=== PATIENT | male | born 1970 | race Caucasian/White ===

== ENCOUNTER 2020-12-23 12:20 | Emergency (ER) | payer OTHER, SELFPAY ==
[2020-12-23] VITALS (7 sets, daily range): BP systolic 139–187; BP diastolic 76–107; PULSE 64–85; RESP 11–24; TEMP 36.6; O2SAT 99–100
--- NOTE | 2020-12-23 12:26 | ECG_ITS ---
Measurements Intervals [place] Rate: 63 P: 12 [place]: 186 QRS: 8 QRSD: 97 T: -6 QT: 364 QTc: 375 Interpretive Statements SINUS RHYTHM WITH SINUS ARRHYTHMIA INCOMPLETE RIGHT BUNDLE BRANCH BLOCK BORDERLINE T WAVE ABNORMALITY- INFERIOR LEADS BORDERLINE ECG Electronically Signed On 12-23-2020 15:33:49 CDT by Christiano Franklin D.O.
[2020-12-23 12:41] LABS: Basophils Absolute Auto 0.1 K/mm3 (0.0-0.1); Basophils Percent Auto 0.9 % (0.2-1.2); Eosinophils Absolute Auto 0.4 K/mm3 (0-0.3); Eosinophils Percent Auto 6.6 % (0-4.4); Hematocrit 47.2 % (42.0-52.0); Hemoglobin 15.8 g/dL (14.0-18.0); Immature Granulocyte Absolute 0.02 K/mm3 (0.00-0.031); Immature Granulocyte Percent A 0.4 % (0-0.5); Lymphocytes Percent Auto 29.4 % (18.3-44.2); Mean Corpuscular HGB Conc 33.5 g/dl (32-36); Mean Corpuscular Hemoglobin 29.6 pg (26-34); Mean Corpuscular Volume 88.6 fl (80-100); Mean Platelet Volume 9.5 fl (7.4-10.4); Monocytes Absolute Auto 0.4 K/mm3 (0.1-0.6); Monocytes Percent Auto 6.8 % (2.6-8.5); Neutrophils Percent Auto 55.9 % (45.5-73.1); Platelet Count Result 158 k/mm3 (150-375); Red Blood Count 5.33 M/mm3 (4.6-6.20); Red Cell Distribution Width 11.7 % (11.5-14.5); White Blood Count 5.4 K/mm3 (4.5-10.0)
[2020-12-23 12:52] LABS: Anion Gap 13 mmol/L (8-16); Blood Urea Nitrogen 26 mg/dL (9-20); Calcium 10.2 mg/dL (8.4-10.2); Carbon Dioxide 24 mmol/L (22-30); Chloride 99 mmol/L (98-107); Estimated CRCL calculation 86 ml/min; Estimated Glomerular Filt Rate > 60; Glucose 253 mg/dL (65-110); Potassium 4.3 mmol/L (3.4-5.0); Sodium 136 mmol/L (137-145)
--- NOTE | 2020-12-23 13:27 | PC.NURSE ---
Patient walked back to room without difficulty and in no distress at this time.
[2020-12-23] MEDS: SODIUM CHLORIDE 0.9% IV 1,000 ML 999 ML IV CONT (14:41)
[2020-12-23] MEDS: MECLIZINE HCL 25 MG TABLET PO (14:41)
--- NOTE | 2020-12-23 15:48 | ED.DIZZY ---
HPI - Dizziness General Chief Complaint: Dizziness Stated Complaint: dizziness/vertigo Time Seen by Provider: 12/23/20 13:38 History of Present Illness HPI Narrative: Patient is a 42-year-old male who presents ER with dizziness. Sudden onset this morning. Worse with laying down flat. No nausea or vomiting or sweats. No chest pain or chest pressure. No weakness in arm or leg. Denies ringing in his ear or ear pressure. Has not taking his morning medications for diabetes. Related Data Allergies Allergy/AdvReac Type Severity Reaction Status Date / Time propylene glycol Allergy Unknown Unknown Verified 12/23/20 14:36 Cat Dander Allergy Unknown Hives Uncoded 12/23/20 14:36 Review of Systems Review of Systems: All systems reviewed & are unremarkable except as noted in HPI and below Constitutional: Constitutional: Denies chills, Denies fever(s) and Denies weakness Eyes: Eyes: Denies change in vision and Denies photophobia ENT: Reports dizziness, Denies nasal congestion and Denies sore throat Cardiovascular: Cardiovascular: Denies chest pain and Denies radiating jaw, neck or arm pain Neurologic: Reports vertigo, Denies focal weakness and Denies numbness PMFSH Past Medical History Medical History (Updated 12/23/20 @ 15:52 by Musa Davis MD) Diabetes Hyperlipidemia Hypertension Surgical History Surgical History (Updated 12/23/20 @ 15:50 by Musa Davis MD) History of appendectomy Social History Social History (Updated 12/23/20 @ 15:50 by Musa Davis MD) Smoking status: Never smoker Gender identity (if verbalized by the patient): Male Exam Narrative: GENERAL: Well-appearing, well-nourished, and in no acute distress. HEAD: Normocephalic, atraumatic. EYES: PERRL and EOMI. ENT: TMs normal bilaterally. Ear canals free of debris. CHEST: Clear to auscultation. No respiratory distress. HEART: Regular rate and rhythm. Normal peripheral pulses. EXTREMITIES: Normal range of motion. No edema. NEURO: Ambulates with steady gait. Alert and oriented x3. PSYCH: Normal mood and affect. Course Course Emergency Course: Dizziness improved with meclizine and fluids. Discharge home. Vital Signs Vital signs: Vital Signs Temperature 97.9 F 12/23/20 12:24 Pulse Rate 64 12/23/20 12:24 Respiratory Rate 20 12/23/20 12:24 Blood Pressure 139/76 12/23/20 12:24 Pulse Oximetry 100 12/23/20 12:24 Temperature 97.9 F 12/23/20 12:24 Pulse Rate 71 12/23/20 14:58 Respiratory Rate 24 H 12/23/20 14:58 Blood Pressure 159/91 H 12/23/20 14:58 Pulse Oximetry 99 12/23/20 14:58 MDM - Dizziness Lab Data Result diagrams: 12/23/20 12:34 12/23/20 12:34 Labs: Lab Results 12/23/20 12/23/20 Range/Units 12:34 12:34 WBC 5.4 (4.5-10.0) K/mm3 RBC 5.33 (4.6-6.20) M/mm3 Hgb 15.8 (14.0-18.0) g/dL Hct 47.2 (42.0-52.0) % MCV 88.6 (80-100) fl MCH 29.6 (26-34) pg MCHC 33.5 (32-36) g/dl RDW 11.7 (11.5-14.5) % Plt Count 158 (150-375) k/mm3 MPV 9.5 (7.4-10.4) fl Immature Gran % (Auto) 0.4 (0-0.5) % Neut % (Auto) 55.9 (45.5-73.1) % Lymph % (Auto) 29.4 (18.3-44.2) % [place] % (Auto) 6.8 (2.6-8.5) % Eos % (Auto) 6.6 H (0-4.4) % Baso % (Auto) 0.9 (0.2-1.2) % Lymph # (Auto) 1.60 (0.9-3.2) K/mm3 [place]ney # (Auto) 0.4 (0.1-0.6) K/mm3 Eos # (Auto) 0.4 H (0-0.3) K/mm3 Baso # (Auto) 0.1 (0.0-0.1) K/mm3 Abs Immat Gran (auto) 0.02 (0.00-0.031) K/mm3 Absolute Neuts (auto) 3.0 (1.3-6.7) K/mm3 Absolute Nucleated RBC 0.0 (0.0-0.012) K/mm3 Nucleated RBC % 0.0 (0.0-0.2) % Sodium 136 L (137-145) mmol/L Potassium 4.3 (3.4-5.0) mmol/L Chloride 99 (98-107) mmol/L Carbon Dioxide 24 (22-30) mmol/L Anion Gap 13 (8-16) mmol/L BUN 26 H (9-20) mg/dL Creatinine 1.20 (0.7-1.3) mg/dL Estim Creat Clear Calc 86 ml/min Estimated GFR > 60 (59 - ) Glucose 253 H (65-110)
== END 2020-12-23 16:46 | disposition home or self-care (01) ==
PROVIDERS: Emergency Provider Emergency Medicine; PCP Family Medicine
DX: R42 Dizziness and giddiness (principal); E11.9 Type 2 diabetes mellitus without complications; E78.5 Hyperlipidemia, unspecified; I10 Essential (primary) hypertension
CPT/HCPCS: 36415; 80048; 85025; 93005; 96360; 99284; A9270; J7030

== ENCOUNTER 2020-12-30 16:17 | Emergency (ER) | payer OTHER, SELFPAY ==
[2020-12-30] VITALS (21 sets, daily range): BP systolic 100–148; BP diastolic 56–81; PULSE 66–94; RESP 15–22; TEMP 36.3; O2SAT 98
--- NOTE | ~2020-12-30 | XR_ITS ---
EXAMINATION: XR chest 2V DATE: 12/30/2020 18:25 INDICATION: Shortness of breath. TECHNIQUE: Frontal and lateral views of the chest were obtained. COMPARISON: Chest 2 views 06/16/2004 FINDINGS: There is no pneumonia, pleural effusion, pneumothorax. The heart size is normal. IMPRESSION: 1. No acute cardiopulmonary disease. Reviewed, dictated and finalized at location A.
--- NOTE | 2020-12-30 18:12 | ECG_ITS ---
Measurements Intervals [place] Rate: 73 P: 25 AL: 178 QRS: 15 QRSD: 101 T: -60 QT: 360 QTc: 397 Interpretive Statements SINUS RHYTHM INCOMPLETE RIGHT BUNDLE BRANCH BLOCK NONSPECIFIC ST & T-WAVE ABNORMALITY- INF/LAT LEADS BASELINE ARTIFACT- V2-V6 BORDERLINE ECG Electronically Signed On 12-30-2020 18:55:22 CDT by Christiano Franklin D.O.
--- NOTE | 2020-12-30 18:16 | ED.GENADULT ---
HPI - General Adult General Chief complaint: Shortness of Breath/Dyspnea Stated complaint: CANT CATCH MY BREATH, BODY ACHES Time Seen by Provider: 12/30/20 17:11 Source: patient Mode of arrival: ambulatory Limitations: no limitations History of Present Illness HPI narrative: Patient presents for evaluation of shortness of breath, neck discomfort and a burning sensation in both legs that occurred today at work at approximately 1400. Symptoms lasted approximately 45 minutes. He then came here for further evaluation. 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 He had similar symptoms 2 days ago and was seen in urgent care at that time. He states that he had an EKG which was normal. He has an underlying history of hypertension, hyperlipidemia, diabetes. States that his blood sugars have been anywhere from 190's to 390's as of late. He is attempting to control his blood sugars with Metformin, although not optimally. At the current time he denies any shortness of breath, neck pain or leg pain. Upon arriving here today he had a little bit of left sided chest pressure, which has since resolved. No personal or family hx of VTE. He does not smoke. States stress has been controlled with buspar. Related Data Home Medications Medication Instructions Recorded Confirmed amlodipine 12/30/20 atenolol 12/30/20 atorvastatin 12/30/20 buspirone mg 12/30/20 ergocalciferol (vitamin D2) 12/30/20 12/30/20 hydrochlorothiazide 12/30/20 lisinopril 12/30/20 metformin mg PO 12/30/20 Allergies Allergy/AdvReac Type Severity Reaction Status Date / Time propylene glycol Allergy Unknown Unknown Verified 12/30/20 17:09 Cat Dander Allergy Unknown Hives Uncoded 12/23/20 14:36 Review of Systems Review of Systems: CONSTITUTIONAL: Denies fever, chills, or sweats. EYES: Denies visual changes, redness, or discharge. ENT: Denies rhinorrhea, congestion, sore throat, or otalgia. CARDIOVASCULAR: Reports left-sided chest pressure earlier, now resolved. Denies palpitations or edema. RESPIRATORY: Reports recent shortness of breath, now resolved. Denies cough. GASTROINTESTINAL: Denies abdominal pain, nausea, vomiting, or diarrhea. GENITOURINARY: Denies dysuria or hematuria. SKIN: Denies rash or itching. MUSCULOSKELETAL: Reports neck pain earlier, now resolved. Denies back pain, joint pain NEUROLOGIC: Denies headache, numbness, dizziness, or weakness. PSYCHIATRIC: Denies anxiety or depression. [facility] Past Medical History Medical History Diabetes Hyperlipidemia Hypertension Surgical History Surgical History History of appendectomy Family History Family History Father Hypertension Mother Heart disease Social History Social History Smoking status: Never smoker Alcohol use details: social Substance use: current Living arrangements: with family Gender identity (if verbalized by the patient): Male Sexual Orientation (if Verbalized by the Patient): Straight or Heterosexual Spiritual care concerns: No Exam Narrative: GENERAL: Well-appearing, well-nourished, and in no acute distress. HEAD: Normocephalic, atraumatic. EYES: PERRLA and EOMI. ENT: Nares clear, no rhinorrhea or epistaxis. Mucous membranes moist. Oropharynx without tonsillar hypertrophy exudate or other lesions. Bilateral TMs pearly el nonbulging NECK: Supple. No adenopathy or masses. No carotid bruits or JVD CHEST: Clear to auscultation. No respiratory distress. No wheezes rales or rhonchi HEART: Regular rate and rhythm. No murmur heard. Normal peripheral pulses. ABDOMEN: Soft, nontender, nondistended, normal active bowel sounds. EXTREMITIES: Normal range of motion. No edema. No posterior calf tenderness. No cords. S
[2020-12-30] MEDS: SODIUM CHLORIDE 0.9% IV 1,000 ML 999 ML IV CONT (18:39)
[2020-12-30 18:40] LABS: Basophils Absolute Auto 0.1 K/mm3 (0.0-0.1); Basophils Percent Auto 0.7 % (0.2-1.2); Eosinophils Absolute Auto 0.5 K/mm3 (0-0.3); Eosinophils Percent Auto 5.4 % (0-4.4); Hemoglobin 15.5 g/dL (14.0-18.0); Immature Granulocyte Absolute 0.02 K/mm3 (0.00-0.031); Immature Granulocyte Percent A 0.2 % (0-0.5); Lymphocytes Percent Auto 26.7 % (18.3-44.2); Mean Corpuscular Hemoglobin 29.4 pg (26-34); Mean Platelet Volume 9.6 fl (7.4-10.4); Monocytes Absolute Auto 0.6 K/mm3 (0.1-0.6); Monocytes Percent Auto 6.2 % (2.6-8.5); Neutrophils Absolute Auto 5.5 K/mm3 (1.3-6.7); Neutrophils Percent Auto 60.8 % (45.5-73.1); Platelet Count Result 193 k/mm3 (150-375); Red Blood Count 5.28 M/mm3 (4.6-6.20); Red Cell Distribution Width 11.8 % (11.5-14.5)
[2020-12-30 18:50] LABS: Partial Thromboplastin Time 23.8 SECONDS (22.3-36.8)
[2020-12-30 18:52] LABS: Alanine Aminotransferase 114 U/L (4-50); Albumin Level 4.6 g/dL (3.5-5.1); Alkaline Phosphatase 75 U/L (38-126); Anion Gap 12 mmol/L (8-16); Aspartate Amino Transferase 84 U/L (17-59); Bilirubin,Total 0.6 mg/dL (0.2-1.3); Blood Urea Nitrogen 30 mg/dL (9-20); Calcium 10.1 mg/dL (8.4-10.2); Carbon Dioxide 25 mmol/L (22-30); Chloride 98 mmol/L (98-107); Creatine Kinase 150 U/L (55-170); Estimated CRCL calculation 58 ml/min; Estimated Glomerular Filt Rate 40; Glucose 141 mg/dL (65-110); Potassium 4.5 mmol/L (3.4-5.0); Sodium 135 mmol/L (137-145)
[2020-12-30 19:03] LABS: Troponin I < 0.012 ng/mL (0.000-0.034)
== END 2020-12-30 22:04 | disposition left against medical advice (07) ==
PROVIDERS: Emergency Provider Nurse Practitioner; PCP Family Medicine
DX: N17.9 Acute kidney failure, unspecified (principal); R06.02 Shortness of breath; R79.1 Abnormal coagulation profile; I10 Essential (primary) hypertension; E78.5 Hyperlipidemia, unspecified; E11.9 Type 2 diabetes mellitus without complications; Z79.84 Long term (current) use of oral hypoglycemic drugs; I45.10 Unspecified right bundle-branch block; R94.31 Abnormal electrocardiogram [ECG] [EKG]
CPT/HCPCS: 36415; 71046; 80053; 82550; 84484; 85025; 85380; 85610; 85730; 93005; 96360; 99284; J7030

== ENCOUNTER 2020-12-31 20:19 | Emergency (ER) | payer OTHER, SELFPAY ==
[2020-12-31] VITALS (7 sets, daily range): BP systolic 114–127; BP diastolic 79–91; PULSE 70–76; RESP 18–22; TEMP 36.2; O2SAT 100
--- NOTE | ~2020-12-31 | CT_ITS ---
EXAMINATION: CTA chest PE protocol DATE: 01/01/2021 00:32 INDICATION: Shortness of breath TECHNIQUE: Computed tomography angiography (CTA) of the chest was performed with 100 mL Omnipaque-350 intravenous contrast timed to evaluate the pulmonary arteries. Coronal maximum intensity projection 3D-reconstructions were created by the technologist. Automated exposure control and iterative reconst ruction technique were employed. Exam dose: 735.61 mGy-cm total exam DLP. COMPARISON: 12/30/2020 PA and lateral chest FINDINGS: There is diagnostic contrast enhancement of the pulmonary arteries and no evidence of pulmo nary embolism. No hilar or mediastinal mass lesion or lymphadenopathy. No thoracic aortic aneurysm or dissection. Normal heart size. No pericardial or pleural effusion. No pulmonary infiltrate or consolidation or pulmonary mass lesion is detected. The adrenal glands are unremarkable. Hepatic steatosis. Included skeletal structures are unremarkable. IMPRESSION: No evidence of pulmonary embolism Reviewed, dictated and finalized at Location [facility]. Reviewed, dictated and finalized at location A.
[2020-12-31 23:03] LABS: Add Urine Microscopic? YES; Appearance Urine Clear (Clear); Bilirubin Urine Negative (Negative); Blood Urine 1+ (Negative); Color Urine Yellow (Yellow); Glucose Urine UA Negative (Negative); Ketones Urine Negative (Negative); Leukocyte Esterase Ur Negative LEU/UL (Negative); Mucus Urine Rare /lpf; Nitrate Urine Negative (Negative); Protein Urine Negative (Negative); RBC Urine 0-2 /hpf (0-2); Specific Grav Ur 1.015 (1.001-1.035); Squamous Epithelial Cell Urine Occasional /hpf (Few); Urobilinogen Urine Negative mg/dL (<2.0); WBC Urine 0-3 /hpf
[2020-12-31 23:07] LABS: Basophils Absolute Auto 0.1 K/mm3 (0.0-0.1); Basophils Percent Auto 0.7 % (0.2-1.2); Eosinophils Absolute Auto 0.3 K/mm3 (0-0.3); Eosinophils Percent Auto 3.8 % (0-4.4); Hematocrit 46.8 % (42.0-52.0); Hemoglobin 15.4 g/dL (14.0-18.0); Immature Granulocyte Absolute 0.01 K/mm3 (0.00-0.031); Immature Granulocyte Percent A 0.1 % (0-0.5); Lymphocytes Absolute Auto 2.09 K/mm3 (0.9-3.2); Lymphocytes Percent Auto 30.2 % (18.3-44.2); Mean Corpuscular HGB Conc 32.9 g/dl (32-36); Mean Corpuscular Hemoglobin 29.1 pg (26-34); Mean Corpuscular Volume 88.3 fl (80-100); Mean Platelet Volume 9.8 fl (7.4-10.4); Monocytes Absolute Auto 0.5 K/mm3 (0.1-0.6); Monocytes Percent Auto 6.5 % (2.6-8.5); Neutrophils Absolute Auto 4.1 K/mm3 (1.3-6.7); Neutrophils Percent Auto 58.7 % (45.5-73.1); Platelet Count Result 194 k/mm3 (150-375); Red Cell Distribution Width 11.6 % (11.5-14.5); White Blood Count 6.9 K/mm3 (4.5-10.0)
[2020-12-31 23:17] LABS: Anion Gap 13 mmol/L (8-16); Blood Urea Nitrogen 21 mg/dL (9-20); Calcium 9.7 mg/dL (8.4-10.2); Carbon Dioxide 24 mmol/L (22-30); Chloride 97 mmol/L (98-107); Estimated CRCL calculation 81 ml/min; Estimated Glomerular Filt Rate 59; Glucose 162 mg/dL (65-110); Potassium 3.7 mmol/L (3.4-5.0); Sodium 134 mmol/L (137-145)
--- NOTE | 2020-12-31 23:29 | ED.RECABL ---
HPI - Recheck/Abnormal Lab/Rx History of Present Illness HPI narrative: 50 yo male presnets to the ED for abnormal labs. He was previously seen here for chest pain. He was found to have an elevated creatinine and d-dimer. There was concern for a PE, but CT could not be done due to low GFR. He was given fluids. The PA seeing him wanted to admit him for ED, and further work-up for PE. The patient could not stay,. so he left AMA. He currently has no complaints. Related Data Home Medications Medication Instructions Recorded Confirmed amlodipine 12/30/20 atenolol 12/30/20 atorvastatin 12/30/20 buspirone mg 12/30/20 ergocalciferol (vitamin D2) 12/30/20 12/30/20 hydrochlorothiazide 12/30/20 lisinopril 12/30/20 metformin mg PO 12/30/20 Allergies Allergy/AdvReac Type Severity Reaction Status Date / Time propylene glycol Allergy Unknown Unknown Verified 12/30/20 17:09 Cat Dander Allergy Unknown Hives Uncoded 12/23/20 14:36 Review of Systems Review of Systems: All systems reviewed & are unremarkable except as noted in HPI and below PMFSH Past Medical History Medical History Diabetes Hyperlipidemia Hypertension Surgical History Surgical History History of appendectomy Family History Family History Father Hypertension Mother Heart disease Social History Social History Smoking status: Never smoker Alcohol use details: social Substance use: current Gender identity (if verbalized by the patient): Male Spiritual care concerns: No Exam Const: General: healthy appearing, no acute distress and alert Orientation/consciousness: patient oriented x3 HENMT: Head: normal to inspection Neck: Neck: normal visual inspection and no lymphadenopathy Chest: Chest palpation & inspection: no tenderness Resp: Effort & Inspection: normal respiratory effort Auscultation: clear to auscultation bilaterally, no rales, no rhonchi and no wheezes Cardio: Jugular venous distension: no JVD Rate: regular rate Rhythm: regular rhythm Heart sounds: no murmurs GI: Inspection: non-distended GI Palp: Yes Soft to palpation and No Tenderness to palpation present (GI) Skin: General skin exam: normal color Neuro: General: patient oriented x3 and moves all extremities Speech: normal speech Extrem: General: no edema Psych: Appearance: well kempt Affect: normal affect Course Vital Signs Vital signs: Vital Signs Temperature 36.2 C L 12/31/20 20:27 Pulse Rate 76 12/31/20 20:27 Respiratory Rate 18 12/31/20 20:27 Blood Pressure 127/79 12/31/20 20:27 Pulse Oximetry 100 12/31/20 20:27 Temperature 36.8 C 01/01/21 02:10 Pulse Rate 71 01/01/21 02:10 Respiratory Rate 17 01/01/21 02:10 Blood Pressure 121/87 01/01/21 02:10 Pulse Oximetry 100 01/01/21 02:10 MDM - Recheck/Abnormal Lab/Rx MDM Narrative Medical decision making narrative: Creatinine corrected. CT negative for PE. No indication for admission at this time. Medical Records Attestation: I reviewed the patient's medical records. Lab Data Attestation: I reviewed the patient's lab results. Result diagrams: 12/31/20 23:00 12/31/20 23:00 Labs: Lab Results 12/31/20 12/31/20 12/31/20 Range/Units 22:52 23:00 23:00 WBC 6.9 (4.5-10.0) K/mm3 RBC 5.30 (4.6-6.20) M/mm3 Hgb 15.4 (14.0-18.0) g/dL Hct 46.8 (42.0-52.0) % MCV 88.3 (80-100) fl MCH 29.1 (26-34) pg MCHC 32.9 (32-36) g/dl RDW 11.6 (11.5-14.5) % Plt Count 194 (150-375) k/mm3 MPV 9.8 (7.4-10.4) fl Immature Gran % (Auto) 0.1 (0-0.5) % Neut % (Auto) 58.7 (45.5-73.1) % Lymph % (Auto) 30.2 (18.3-44.2) % [place] % (Auto) 6.5 (2.6-8.5) % Eos % (A
[2021-01-01] VITALS (9 sets, daily range): BP systolic 119–121; BP diastolic 87–88; PULSE 70–77; RESP 17–19; TEMP 36.8; O2SAT 99–100
[2021-01-01] MEDS: SODIUM CHLORIDE 0.9% IV 1,000 ML 999 ML IV CONT (00:06)
--- NOTE | 2021-01-01 00:21 | PC.NURSE ---
Patient in CT.
== END 2021-01-01 02:08 | disposition home or self-care (01) ==
PROVIDERS: Emergency Medicine; Emergency Provider Emergency Medicine; PCP Family Medicine
DX: R06.02 Shortness of breath (principal)
CPT/HCPCS: 36415; 71275; 80048; 81001; 85025; 96360; 99284; J7030; Q9967

== ENCOUNTER 2022-03-26 22:34 | Emergency (ER) | payer OTHER, SELFPAY ==
--- NOTE | ~2022-03-26 | XR_ITS ---
EXAMINATION: XR chest 2V DATE: 03/26/2022 23:10 INDICATION: Chest discomfort. Arrhythmia. TECHNIQUE: Frontal and lateral views of the chest were obtained. COMPARISON: Chest 2 views 12/30/2020, chest CT 01/01/2021 FINDINGS: There is mild atelectasis in left lower lung zone. No pleural effusion or pneumothorax. The heart size is normal. IMPRESSION: 1. Mild atelectasis in left lower lung zone. Reviewed, dictated and finalized at location A.
--- NOTE | 2022-03-26 22:39 | ECG_ITS ---
Measurements Intervals [place] Rate: 72 P: 16 [place]: 172 QRS: 6 QRSD: 102 T: -75 QT: 344 QTc: 378 Interpretive Statements SINUS RHYTHM INCOMPLETE RIGHT BUNDLE BRANCH BLOCK T WAVE ABNORMALITY IN ANTEROLAT/INF LEADS- CONSIDER ISCHEMIA ABNORMAL ECG COMPARED TO ECG 12/30/2020 18:26:58 T WAVE ABNORMALITY IN ANTEROLAT/INF LEADS- CONSIDER ISCHEMIA NOW PRESENT Electronically Signed On 03-27-2022 6:53:02 CDT by Christiano Franklin D.O.
[2022-03-26 22:57] VITALS: BP 173/91; PULSE 75; RESP 14; TEMP 36.8; O2SAT 100
[2022-03-26 23:04] LABS: Basophils Percent Auto 0.6 % (0.2-1.2); Eosinophils Absolute Auto 0.5 K/mm3 (0-0.3); Eosinophils Percent Auto 6.6 % (0-4.4); Hematocrit 43.5 % (42.0-52.0); Hemoglobin 14.5 g/dL (14.0-18.0); Immature Granulocyte Absolute 0.03 K/mm3 (0.00-0.031); Immature Granulocyte Percent A 0.4 % (0-0.5); Lymphocytes Absolute Auto 1.63 K/mm3 (0.9-3.2); Lymphocytes Percent Auto 22.9 % (18.3-44.2); Mean Corpuscular HGB Conc 33.3 g/dl (32-36); Mean Corpuscular Hemoglobin 30.1 pg (26-34); Mean Corpuscular Volume 90.4 fl (80-100); Mean Platelet Volume 9.2 fl (7.4-10.4); Monocytes Absolute Auto 0.4 K/mm3 (0.1-0.6); Neutrophils Absolute Auto 4.5 K/mm3 (1.3-6.7); Neutrophils Percent Auto 63.5 % (45.5-73.1); Platelet Count Result 185 k/mm3 (150-375); Red Blood Count 4.81 M/mm3 (4.6-6.20); Red Cell Distribution Width 12.2 % (11.5-14.5); White Blood Count 7.1 K/mm3 (4.5-10.0)
[2022-03-26 23:16] LABS: INR 1.2; Prothrombin Time 14.4 Seconds (11.1-14.7)
[2022-03-26 23:17] LABS: Alanine Aminotransferase 66 U/L (6-50); Albumin Level 4.8 g/dL (3.5-5.1); Alkaline Phosphatase 78 U/L (38-126); Anion Gap 12 mmol/L (8-16); Aspartate Amino Transferase 54 U/L (17-59); Bilirubin,Total 0.5 mg/dL (0.2-1.3); Blood Urea Nitrogen 24 mg/dL (9-20); Calcium 9.4 mg/dL (8.4-10.2); Carbon Dioxide 25 mmol/L (22-30); Chloride 102 mmol/L (98-107); Estimated Glomerular Filt Rate > 60; Glucose 135 mg/dL (65-110); Lipase 115 U/L (23-300); Partial Thromboplastin Time 28.6 SECONDS (22.3-36.8); Potassium 3.8 mmol/L (3.4-5.0); Sodium 139 mmol/L (137-145)
[2022-03-26 23:28] LABS: Troponin I < 0.012 ng/mL (0.000-0.034)
[2022-03-26 23:30] VITALS: BP 157/98; PULSE 74; RESP 18; TEMP 36.8; O2SAT 100
--- NOTE | 2022-03-27 00:27 | ED.ARRPALP ---
HPI - Arrhythmia/Palpitations General Chief Complaint: Arrhythmia/Palpitations Stated Complaint: irregular heart beat Time Seen by Provider: 03/26/22 23:06 History of Present Illness HPI narrative: Patient is a 52-year-old male who presents ER with feeling of skipping a beat. Reports its been going on for last 24 hours. Reports he has had symptoms like this for years but this has been more persistent. No chest pain or chest pressure. No shortness of breath. He is not not having any dizziness. No exertional fatigue. He reports he has had no change in medications and no intake of caffeine. Reports he does drink alcohol but has not had any in excess. He is without fevers or chills or sweats. Patient also reports that he has history of T wave inversions in his EKG since seeing a doctor 20 years ago. Reports he is talked to his primary care doctors about his skipped beats and they have not intervened. He does take amlodipine and atenolol. He has not had a stress test nor is he had a Holter monitor. Related Data Home Medications Medication Instructions Recorded Confirmed amlodipine 2.5 mg tablet 12/30/20 atenolol 100 mg tablet 12/30/20 atorvastatin 10 mg tablet 12/30/20 buspirone 10 mg tablet mg 12/30/20 ergocalciferol (vitamin D2) 1,250 12/30/20 12/30/20 mcg (50,000 unit) capsule hydrochlorothiazide 12.5 mg capsule 12/30/20 lisinopril 40 mg tablet 12/30/20 metformin 500 mg tablet,extended mg PO 12/30/20 release 24 hr Allergies Allergy/AdvReac Type Severity Reaction Status Date / Time propylene glycol Allergy Unknown Unknown Verified 12/30/20 17:09 Cat Dander Allergy Unknown Hives Uncoded 12/23/20 14:36 Review of Systems Review of Systems: All systems reviewed & are unremarkable except as noted in HPI and below Constitutional: Constitutional: Denies chills, Denies fatigue and Denies fever(s) ENT: Denies nasal congestion and Denies sore throat Cardiovascular: Cardiovascular: Denies chest pain, Denies rapid heart rate and Denies radiating jaw, neck or arm pain Comments: Palpitations Respiratory: Respiratory: Denies cough and Denies dyspnea Gastrointestinal: Gastrointestinal: Denies abdominal pain, Denies nausea and Denies vomiting Neurologic: Denies dizziness and Denies syncope PMFSH Past Medical History Medical History Diabetes Hyperlipidemia Hypertension Surgical History Surgical History History of appendectomy Family History Family History Father Hypertension Mother Heart disease Social History Social History Smoking status: Never smoker Alcohol use details: social Substance use: current Gender identity (if verbalized by the patient): Male Sexual Orientation (if Verbalized by the Patient): Straight or Heterosexual Spiritual care concerns: No Exam Narrative: GENERAL: Well-appearing, well-nourished, and in no acute distress. HEAD: Normocephalic, atraumatic. EYES: PERRL and EOMI. ENT: Mucous membranes moist. CHEST: Clear to auscultation. No respiratory distress. HEART: Regular rate and rhythm. Normal peripheral pulses. ABDOMEN: Soft, nontender, nondistended. EXTREMITIES: Normal range of motion. No edema. SKIN: Warm, dry, no rash. NEURO: Alert and oriented x3. PSYCH: Normal mood and affect. Course Course Emergency Course: Patient does have PACs on his monitor that are asymptomatic. He has had no chest pain. Troponin negative. Recommend follow-up with PCP. May require adjustment of his atenolol or amlodipine. On second troponin. Vital Signs Vital signs: Vital Signs Temperature 98.3 F 03/26/22 22:57 Pulse Rate 75 03/26/22 22:57 Respiratory Rate 14 03/26/22 22:57 Blood Pressure 173/91 H 03/26/22 22:57 Pulse
[2022-03-27 01:00] VITALS: BP 129/80; PULSE 76; RESP 16; TEMP 36.8; O2SAT 100
[2022-03-27 01:52] VITALS: BP 126/82; PULSE 78; RESP 18; TEMP 36.9; O2SAT 100
== END 2022-03-27 01:55 | disposition home or self-care (01) ==
PROVIDERS: Emergency Provider Emergency Medicine; PCP Family Medicine
DX: R00.2 Palpitations (principal); E11.9 Type 2 diabetes mellitus without complications; E78.5 Hyperlipidemia, unspecified; I10 Essential (primary) hypertension; Z79.84 Long term (current) use of oral hypoglycemic drugs; I45.10 Unspecified right bundle-branch block; R94.31 Abnormal electrocardiogram [ECG] [EKG]
CPT/HCPCS: 36415; 71046; 80053; 83690; 84484; 85025; 85610; 85730; 93005; 99284

== ENCOUNTER 2022-06-18 17:21 | Emergency (ER) | payer OTHER, SELFPAY ==
--- NOTE | ~2022-06-18 | XR_ITS ---
EXAMINATION: XR chest 2V Exam Date/Time: 06/18/2022 17:50 HOME CARE PROVIDER HISTORY: palpitations, HX HTN Comparison: 03/26/2022. RESULT: Lines, tubes, and devices: None. Lungs and pleura: Clear. Stable right pleural scarring. Cardiomediastinal silhouette: Stable. Other: No acute osseous or upper abdominal finding. IMPRESSION: No acute cardiopulmonary process. Reviewed, dictated and finalized at location K. CARE PROVIDER
[2022-06-18 17:32] VITALS: BP 155/97; PULSE 66; RESP 16; TEMP 36.6; O2SAT 98
--- NOTE | 2022-06-18 17:32 | ECG_ITS ---
Measurements Intervals [place] Rate: 73 P: 2 IN: 166 QRS: 11 QRSD: 98 T: 0 QT: 367 QTc: 405 Interpretive Statements SINUS RHYTHM FREQUENT ATRIAL PREMATURE COMPLEXES INCOMPLETE RIGHT BUNDLE BRANCH BLOCK NONSPECIFIC T-WAVE ABNORMALITY- INFERIOR LEADS ABNORMAL ECG COMPARED TO ECG 03/26/2022 22:46:42 FREQUENT ATRIAL PREMATURE COMPLEXES NOW PRESENT T WAVE ABNORMALITY IMPROVED Electronically Signed On 06-19-2022 6:17:05 NEWSWRITER by Christiano Franklin D.O.
--- NOTE | 2022-06-18 17:34 | ED.ARRPALP ---
HPI - Arrhythmia/Palpitations General Chief Complaint: Arrhythmia/Palpitations Stated Complaint: heart palpatations Time Seen by Provider: 06/18/22 17:24 History of Present Illness HPI narrative: Patient is a 52-year-old male with a history of hypertension, diabetes, here for evaluation of palpitations. Patient states the palpitations have been going on for the past 8 months. They come on at random and are not associated with exertion. Does note increased frequency over the past week. He was seen in the ED 3 months ago and diagnosed with premature atrial contractions and told to follow-up with his PCP, which he did. He was placed on atenolol and referred to cardiology but patient did not contact them until May to make an appointment. He has an appointment with cardiology in June. He denies any chest pain, shortness of breath, fevers or chills, nausea or vomiting, syncope. Related Data Home Medications Medication Instructions Recorded Confirmed amlodipine 2.5 mg tablet 12/30/20 atenolol 100 mg tablet 12/30/20 atorvastatin 10 mg tablet 12/30/20 buspirone 10 mg tablet mg 12/30/20 ergocalciferol (vitamin D2) 1,250 12/30/20 12/30/20 mcg (50,000 unit) capsule hydrochlorothiazide 12.5 mg capsule 12/30/20 lisinopril 40 mg tablet 12/30/20 metformin 500 mg tablet,extended mg PO 12/30/20 release 24 hr Allergies Allergy/AdvReac Type Severity Reaction Status Date / Time propylene glycol Allergy Unknown Unknown Verified 12/30/20 17:09 Cat Dander Allergy Unknown Hives Uncoded 12/23/20 14:36 Review of Systems Review of Systems: Gen.: Denies fevers or chills Eyes: Denies eye pain or visual change ENT: Denies congestion Respiratory: Denies shortness of breath or cough CV: Reports palpitations GI: Denies abdominal pain nausea, emesis or diarrhea : denies burning, urgency, frequency or hematuria Musculoskeletal: Denies back pain or muscle pain Neuro: Denies numbness, tingling, weakness or focal weakness Skin: Denies rash Except as documented, all other systems reviewed and negative [facility], [facility] Past Medical History Medical History Diabetes Hyperlipidemia Hypertension Surgical History Surgical History History of appendectomy Family History Family History Father Hypertension Mother Heart disease Social History Social History Smoking status: Never smoker Alcohol use details: social Substance use: current Living arrangements: with family Gender identity (if verbalized by the patient): Male Sexual Orientation (if Verbalized by the Patient): Straight or Heterosexual Spiritual care concerns: No Exam Narrative: APPEARANCE: Well appearing, no pain in distress, well-nourished. Head: Normocephalic and atraumatic. EYES: PERRLA/EOMI, conjunctivae clear NOSE: No nasal drainage EARS: External ear normal in appearance THROAT: Oropharynx is clear. Mucous membranes are moist. NECK: Supple. No adenopathy, no masses. RESPIRATORY: Airway patent, respirations nonlabored. Clear to auscultation bilaterally, no rales, rhonchi, wheezing. CARDIOVASCULAR: Regular rate and rhythm without murmurs, rubs, or gallops. ABDOMINAL: Normoactive bowel sounds. Soft, nontender, nondistended. No rebound tenderness or guarding. MUSCULOSKELETAL: Extremities are warm and well-perfused. Moves all extremities well. No edema. NEURO: Normal speech. No focal neurologic deficits. SKIN: Skin is warm and dry. No rashes. PSYCHIATRIC: Normal affect/mood. Course Vital Signs Vital signs: Vital Signs Temperature 97.8 F 06/18/22 17:32 Pulse Rate 66 06/18/22 17:32 Respiratory Rate 16 06/18/22 17:32 Blood Pressure 155/97 H 06/18/22 17:32 Pulse Oximetry 98 06/18/22 17:32 Oxygen D
[2022-06-18 17:52] LABS: Basophils Absolute Auto 0.1 K/mm3 (0.0-0.1); Basophils Percent Auto 0.7 % (0.2-1.2); Eosinophils Absolute Auto 0.4 K/mm3 (0-0.3); Eosinophils Percent Auto 6.1 % (0-4.4); Hematocrit 43.9 % (42.0-52.0); Hemoglobin 14.7 g/dL (14.0-18.0); Immature Granulocyte Absolute 0.01 K/mm3 (0.00-0.031); Immature Granulocyte Percent A 0.1 % (0-0.5); Lymphocytes Absolute Auto 1.34 K/mm3 (0.9-3.2); Lymphocytes Percent Auto 19.1 % (18.3-44.2); Mean Corpuscular HGB Conc 33.5 g/dl (32-36); Mean Corpuscular Hemoglobin 29.6 pg (26-34); Mean Corpuscular Volume 88.3 fl (80-100); Mean Platelet Volume 9.1 fl (7.4-10.4); Monocytes Absolute Auto 0.5 K/mm3 (0.1-0.6); Monocytes Percent Auto 6.4 % (2.6-8.5); Neutrophils Absolute Auto 4.7 K/mm3 (1.3-6.7); Neutrophils Percent Auto 67.6 % (45.5-73.1); Platelet Count Result 181 k/mm3 (150-375); Red Blood Count 4.97 M/mm3 (4.6-6.20); Red Cell Distribution Width 12.1 % (11.5-14.5)
[2022-06-18 17:53] LABS: Glucose Point of Care 132 mg/dl (65-105)
[2022-06-18 18:09] LABS: Alanine Aminotransferase 76 U/L (6-50); Albumin Level 4.2 g/dL (3.5-5.1); Alkaline Phosphatase 69 U/L (38-126); Anion Gap 7 mmol/L (8-16); Aspartate Amino Transferase 47 U/L (17-59); Bilirubin,Total 0.7 mg/dL (0.2-1.3); Blood Urea Nitrogen 17 mg/dL (9-20); Calcium 8.7 mg/dL (8.4-10.2); Carbon Dioxide 27 mmol/L (22-30); Chloride 106 mmol/L (98-107); Estimated Glomerular Filt Rate 58; Glucose 137 mg/dL (65-110); Magnesium 1.4 mg/dL (1.6-2.3); Potassium 4.1 mmol/L (3.4-5.0); Sodium 140 mmol/L (137-145)
[2022-06-18 18:20] LABS: Troponin I < 0.012 ng/mL (0.000-0.034)
[2022-06-18 18:45] LABS: Thyroid Stimulating Hormone 0.925 uIU/mL (0.465-4.680)
[2022-06-18 19:35] VITALS: BP 145/92; PULSE 70; RESP 18; O2SAT 98
== END 2022-06-18 19:25 | disposition home or self-care (01) ==
PROVIDERS: Emergency Provider Physician Assistant; PCP Family Medicine
DX: R00.2 Palpitations (principal)
CPT/HCPCS: 36415; 71046; 80053; 82948; 83735; 84443; 84484; 85025; 93005; 99284